=== PATIENT | male | born 1985 | race Caucasian/White ===

== ENCOUNTER 2019-12-12 01:58 | Emergency (ER) | payer MEDICAID ==
[~2019-12-12] VITALS: Ht 176.5 cm; Wt 72.6 kg
--- NOTE | 2019-12-12 02:01 | NUR ---
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 PT UNABLE TO RECALL THE EVENT. BACK TO BASELINE. PT AAOX4,VSS, REPSIRATIONS EVEN AND UNLABORED ON RA W/ NAD NOTED. PT CONNECTED TO THE LIFT SLAB OPERATOR AND POX. SEIZURE PRECAUTIONS IMPLEMENTED.
--- NOTE | 2019-12-12 02:24 | NUR ---
AUTO PORTER AT BEDSIDE FOR BLOOD DRAW
[2019-12-12 02:39] LABS: BASOPHILS # (AUTO) 0.1 /CMM (0.0-0.2); BASOPHILS % (AUTO) 1.3 % (0.0-2.0); EOSINOPHILS % (AUTO) 0.3 % (0.0-6.0); HEMATOCRIT 39 % (39-51); HEMOGLOBIN 12.8 g/dL (13.5-17.5); LYMPHOCYTES # (AUTO) 0.4 /CMM (0.8-4.8); LYMPHOCYTES % (AUTO) 5.1 % (20.0-44.0); MEAN CORPUSCULAR HGB CONC 32 g/dl (31.0-36.0); MEAN CORPUSCULAR VOLUME 95 fL (80-96); MONOCYTES # (AUTO) 0.9 /CMM (0.1-1.30); MONOCYTES % (AUTO) 10.6 % (2.0-12.0); NEUTROPHILS # (AUTO) 7.2 /CMM (1.8-8.9); NEUTROPHILS % (AUTO) 82.7 % (43.0-81.0); PLATELET COUNT (AUTO) 89 /CMM (150-450); RED BLOOD CELL COUNT(AUTO) 4.15 MIL/uL (4.5-6.0); WHITE BLOOD COUNT (AUTO) 8.7 K/uL (4.3-11.0)
[2019-12-12 02:51] LABS: CALCIUM, SERUM 8.9 mg/dL (8.5-10.1); POTASSIUM 3.8 mmol/L (3.5-5.1)
[2019-12-12 02:57] LABS: ALBUMIN 4.5 g/dL (3.4-5.0); BILIRUBIN,DIRECT 0.2 mg/dL (0.0-0.2); BILIRUBIN,TOTAL 0.4 mg/dL (0.2-1.0); TOTAL PROTEIN, SERUM 8.2 g/dL (6.4-8.2)
[2019-12-12 03:42] LABS: BAND % (MANUAL) 15 % (0.0-5.0); NEUTROPHILS % (MANUAL) 70 (42-76)
[2019-12-12 03:43] LABS: LYMPHOCYTES % (MANUAL) 6 % (16-48); MONOCYTES % (MANUAL) 9 % (0-11.0)
[2019-12-12 03:48] VITALS: BP 144/79
--- NOTE | 2019-12-12 03:48 | NUR ---
Patient discharged to home in stable condition. Written and verbal after care instructions given. Patient verbalizes understanding of instruction.pt. ambulatory with a steady gait
== END 2019-12-12 03:49 | disposition home or self-care (01) ==
LOC: ER 01:58
DX: G40.909 Epilepsy, unspecified, not intractable, without status epilepticus (principal); F10.239 Alcohol dependence with withdrawal, unspecified; R51 Headache; R94.31 Abnormal electrocardiogram [ECG] [EKG]; Y90.1 Blood alcohol level of 20-39 mg/100 ml
CPT/HCPCS: 36415; 70450-TC; 71045-TC; 80048-TC; 80076-TC; 82962-TC; 85025-TC; 85730-TC; G0480

== ENCOUNTER 2019-12-12 09:28 | Emergency (ER) | payer MEDICAID ==
[~2019-12-12] VITALS: Ht 170.2 cm; Wt 72.6 kg
--- NOTE | 2019-12-12 09:37 | NUR ---
BIBRA C/O WITNESSED FULL TONIC CLONIC SEIZURE IN PARKING LOT, URINARY INCONTINENCE AND ORAL TRAUMA NOTED. PATIENT NOTED ON HARD CERVICAL BRACE. TO ER ED 9, HOOKED TO MONITOR, CHANGED TO HOSP GOWN, WARM BLANKET PROVIDED, AWAITING MD DE LEON.
--- NOTE | 2019-12-12 09:37 | NUR ---
DR LOPEZ AT BEDSIDE
--- NOTE | 2019-12-12 09:51 | NUR ---
WHEELED OUT VIA RNEY FOR CT SCAN
[2019-12-12] MEDS ORDERED: LEVETIRACETAM (500MG) 1,000 MG in IV NS 0.9% 100 ML IV SCH (10:00)
--- NOTE | 2019-12-12 10:40 | NUR ---
WARRANTY CLERK AT BEDSIDE FOR WOUND CLEANING
[2019-12-12] MEDS ORDERED: CHLORDIAZEPOXIDE HCL 25 MG CAPSULE PO ONE (11:00)
[2019-12-12] MEDS ORDERED: CHLORDIAZEPOXIDE HCL 25 MG CAPSULE ONE (11:00)
[2019-12-12] MEDS ORDERED: TDAP [DIPH/PERTUSSIS/TET] 0.5 ML VIAL IM ONE ×2 (11:30→11:55)
--- NOTE | 2019-12-12 12:24 | NUR ---
patient in bed asleep, easily arousable by voice. hooked to monitor, vss. will continue to monitor accordingly.
--- NOTE | 2019-12-12 13:24 | NUR ---
IV removed. Catheter intact and site benign. Pressure and 4x4 applied to site. No bleeding noted.Patient discharged to home in stable condition. Written and verbal after care instructions given. Patient verbalizes understanding of instruction.
[2019-12-12 13:25] VITALS: BP 125/78
== END 2019-12-12 13:26 | disposition home or self-care (01) ==
LOC: ER 09:29
DX: S00.531A Contusion of lip, initial encounter (principal); F10.239 Alcohol dependence with withdrawal, unspecified; R56.9 Unspecified convulsions; R41.0 Disorientation, unspecified; Z91.19 Patient's noncompliance with other medical treatment and regimen; X58.XXXA Exposure to other specified factors, initial encounter; Y93.89 Activity, other specified; Y92.481 Parking lot as the place of occurrence of the external cause; Y99.8 Other external cause status; Y90.0 Blood alcohol level of less than 20 mg/100 ml
CPT/HCPCS: 36415; 70450; 70486; 72125; 80307; 90471; 90715; 96365; 99285; A6403; J1953; J7030; G0480